=== PATIENT | female | born 1995 | race African-American/Black ===

== ENCOUNTER 2024-05-02 20:57 | Emergency (ER) | payer MEDICAID ==
[~2024-05-02] VITALS: Ht 152.4 cm; Wt 49.4 kg
[2024-05-02 21:03] VITALS: BP_SYST 114; PULSE 108; RESP 18; TEMP 96.7; O2SAT 98
[2024-05-02] MEDS: predniSONE 20 MG TABLET PO ONE (21:30)
[2024-05-02] MEDS: ALBUTEROL SULFATE 0.083% 2.5 MG/3 ML VIAL.NEB INH ONE (21:34)
[2024-05-02] MEDS ORDERED: PRED20TA PO (22:19)
[2024-05-02] MEDS ORDERED: ALBMDI INH (22:19)
[2024-05-02 22:25] VITALS: BP_SYST 115; PULSE 106; RESP 18; TEMP 97.8; O2SAT 98
== END 2024-05-02 22:25 | disposition home or self-care (01) ==
LOC: SED 20:57
DX: J45.901 Unspecified asthma with (acute) exacerbation (principal); Z91.040 Latex allergy status; Z79.52 Long term (current) use of systemic steroids
CPT/HCPCS: 99283; 94640; J7512